=== PATIENT | female | born 1930 | race Caucasian/White ===

== ENCOUNTER 2017-12-21 13:15 | Inpatient (IN) ==
[2017-12-21] MEDS ORDERED: HYDROcodone/APAP 10/325MG TABLET PO ONE (13:41)
[2017-12-21] MEDS ORDERED: HYDROcodone/APAP 5/325MG TABLET PO ONE (13:55)
--- NOTE | 2017-12-21 14:00 | Emergency Department Note ---
Lower Extremity Injury HPI - General Chief Complaint: Extremity Injury, Lower Stated Complaint: Left knee and hip pain Time Seen by Provider: 12/21/17 13:23 Source: patient, family Mode of arrival: wheelchair Limitations: no limitations - History of Present Illness HPI Narrative: 87-year-old female presents with left hip knee and upper leg pain. She was seen here within the last 2 days for a fall that she had on Sunday. She had a CT scan of her pelvis which did not show any fracture. She also had hip x- ray but no knee x-ray. Since then she has not been able to stand or walk. She states the pain is 10 out of 10. She was sent home with hydrocodone which has not helped. She has also had incontinence of urine. Is new for her. She has not had any diarrhea. She is nauseated because of the pain. No vomiting. She has a history of back issues and that does not necessarily worse. She has weakness in the left leg and cannot get herself out of a chair with that leg. - Related Data Home Medications Medication Instructions Recorded Confirmed carbidopa 25 mg-levodopa 100 mg See Label Instructions PO .COMPLEX 09/29/1601/06 tablet pramipexole 0.5 mg tablet 0.5 mg PO BID tab 09/29/16 12/21/17 aspirin 81 mg tablet,delayed 81 mg PO QDAY 08/04/17 12/21/17 release Udo's 3.6.9 Blend 1,500 mg PO QDAY 08/30/17 12/21/17 acetaminophen 500 mg tablet 500 mg PO QDAY PRN tab 08/30/17 12/21/17 ketorolac 0.5 % eye drops 1 drp OPHTHALMIC Q8H 08/30/17 12/21/17 quetiapine 25 mg tablet See Label Instructions .ROUTE 10/23/17 12/21/17 .COMPLEX Previous Rx's Medication Instructions Recorded cyanocobalamin (vit B-12) 1,000 1,000 mcg PO .QOD #1 tab 12/28/16 mcg tablet hydrocodone 5 mg-acetaminophen 325 1 tab PO QDAY PRN #30 tab 11/08/17 mg tablet Allergies Allergy/AdvReac Type Severity Reaction Status Date / Time simvastatin [From Zocor] Allergy Intermediate Nightmares/ Verified 12/21/17 13: 15 hallucinati ons ciprofloxacin Allergy intolerance Verified 12/21/17 13:15 codeine AdvReac Intermediate Headache Verified 12/21/17 13:15 Beta-Blockers AdvReac Mild Other Verified 12/21/17 13:15 (Beta-Adrenergic Bloc diltiazem AdvReac Mild Other Verified 12/21/17 13:15 pregabalin [From Lyrica] AdvReac Mild Other Verified 12/21/17 13:15 Review of Systems All systems ED: reviewed and negative except as stated. Past Medical History - Past Medical History Medical history: Reports: arthritis, hyperlipidemia, hypertension, osteoporosis , TIA, other (allergic rhinitis, parkinson's disease) Psychiatric history: Reports: no psych history RESIDENT CARE AIDE history: Reports: non-contributory Surgical history ED: Reports: non-contributory Family history: Reports: non-contributory - Social History smoking status: Never smoker Alcohol use: Reports: None Drug use: Reports: none Physical Exam Limitations: no limitations General appearance: alert, in no apparent distress Head: atraumatic Eye: Present: normal appearance. Absent: conjunctival injection Neck: Present: normal inspection, full ROM Chest: Present: normal inspection, symmetric chest wall rise Respiratory: Present: normal lung sounds bilaterally Cardiovascular: Present: tachycardia, normal heart sounds Abdominal: Present: soft, normal bowel sounds. Absent: tenderness Extremities: Present: other (Lateral hip is tender on palpation. Medial knee is tender to palpation. No effusion of the knee. She has pain with flexion of the hip and abduction. She is able to flex the knee 90 without pain. Pain radiates from her hip to her knee. She is unable to lift both of her legs without significant pain. No foot drop.) Neurological: Present: alert, oriented X3 Psychiatric: Present: normal affect, normal mood Skin: Present: warm, dry, intact Course Course Narrative: She had a mild fever when she was triaged. I related it to her pain. She is now 100.7. I will start a workup She is also 88-89% on room air. We got a chest x-ray which shows a probable right lower lobe pneumonia. Fever better and vitals stable. Hoping to admit for pain control, pneumonia, and weakness. She requires 2 liters of oxygen at this time Vital Signs Temperature 100.0 F H 12/21/17 13:16 Pulse Rate 110 H 02/02/18 13:16 Respiratory Rate 18 12/21/17 13:16 Blood Pressure 176/96 12/21/17 13:16 Pulse Oximetry (%) 98 12/21/17 13:16 Temperature 99.5 F H 12/21/17 15:41 Pulse Rate 64 12/21/17 16:12 Respiratory Rate 20 12/21/17 16:12 Blood Pressure 141/77 12/21/17 16:24 Pulse Oximetry (%) 95 12/21/17 16:15 Extremity Injury, Lower - Lab Data Result diagrams: 12/21/17 14:50 12/21/17 14:50 Lab Results 12/21/17 12/21/17 12/21/17 Range/Units 14:50 14:50 14:50 WBC 9.4 (4.5-11.0) K/mcL RBC 4.58 (4.00-5.20) M/mcL Hgb 14.4 (12.0-15.0) g/dL Hct 42.4 (36.0-48.0) % MCV 92.7 (80.0-100.0) fL MCH 31.5 (26.0-34.0) pg MCHC 33.9 (31.0-36.0) g/dL RDW 13.2 (11.5-14.5) % Plt Count 242 (140-440) K/mcL MPV 8.1 (7.4-10.4) fL Total Counted 100 Seg Neutrophils % 81 H (38-78) % Band Neutrophils % Not Reportable Lymphocytes % 12 L (15-49) % Monocytes % (Manual) 7 (1-12) % Platelet Estimate Normal (NORMAL) RBC Morphology Normal (NORMAL) VBG Lactic Acid 0.9 (0.5-2.2) mmol/L Sodium 134 (133-145) mmol/L Potassium 3.9 (3.3-5.1) mmol/L Chloride 96 (96-108) mmol/L Carbon Dioxide 26 (22-30) mmol/L Anion Gap 12.0 (8-16) BUN 13 (8-23) mg/dl Creatinine 0.6 (0.6-1.1) mg/dl GFR Calculation 83 Glucose 117 H (70-105) mg/dL Calcium 9.1 (8.6-10.4) mg/dl Total Bilirubin 1.1 H (0.0-1.0) mg/dL AST 18 (0-37) U/l ALT 10 (0-40) U/l Alkaline Phosphatase 67 (39-117) U/L Total Protein 7.4 (5.9-8.4) gm/dL Albumin 4.5 (3.2-5.2) gm/dL Globulin 2.9 (2.2-3.7) gm/dL Albumin/Globulin Ratio 1.6 (1.0-2.3) Urine Color Urine Appearance Urine pH (5.0-9.0) Ur Specific [place] (1.000-1.035) Urine Protein (NEG) mg/dL Urine Glucose (UA) (NEG) mg/dL Urine Ketones (NEG) mg/dL Urine Occult Blood (<0.03) mg/dL Urine Nitrate (NEG) Urine Bilirubin (NEG) mg/dL Urine Urobilinogen (NEG) mg/dL Ur Leukocyte Esterase (NEG) /uL Urine RBC (0-1) /hpf Urine WBC (0-4) /hpf Ur Squamous Epith Cells (0-4) /hpf Urine Bacteria (0) /hpf Urine Mucus (0) /hpf Ur Culture Indicated? 12/21/17 Range/Units 15:49 WBC (4.5-11.0) K/mcL RBC (4.00-5.20) M/mcL Hgb (12.0-15.0) g/dL Hct (36.0-48.0) % MCV (80.0-100.0) fL MCH (26.0-34.0) pg MCHC (31.0-36.0) g/dL RDW (11.5-14.5) % Plt Count (140-440) K/mcL MPV (7.4-10.4) fL Total Counted Seg Neutrophils % (38-78) % Band Neutrophils % Lymphocytes % (15-49) % Monocytes % (Manual) (1-12) % Platelet Estimate (NORMAL) RBC Morphology (NORMAL) VBG Lactic Acid (0.5-2.2) mmol/L Sodium (133-145) mmol/L Potassium (3.3-5.1) mmol/L Chloride (96-108) mmol/L Carbon Dioxide (22-30) mmol/L Anion Gap (8-16) BUN (8-23) mg/dl Creatinine (0.6-1.1) mg/dl GFR Calculation Glucose (70-105) mg/dL Calcium (8.6-10.4) mg/dl Total Bilirubin (0.0-1.0) mg/dL AST (0-37) U/l ALT (0-40) U/l Alkaline Phosphatase (39-117) U/L Total Protein (5.9-8.4) gm/dL Albumin (3.2-5.2) gm/dL Globulin (2.2-3.7) gm/dL Albumin/Globulin Ratio (1.0-2.3) Urine Color Yellow Urine Appearance Clear Urine pH 6.0 (5.0-9.0) Ur Specific [place] 1.019 (1.000-1.035) Urine Protein Neg (NEG) mg/dL Urine Glucose (UA) Negative (NEG) mg/dL Urine Ketones 5/tr A (NEG) mg/dL Urine Occult Blood Neg (<0.03) mg/dL Urine Nitrate Neg (NEG) Urine Bilirubin Neg (NEG) mg/dL Urine Urobilinogen 2.0 A (NEG) mg/dL Ur Leukocyte Esterase Neg (NEG) /uL Urine RBC 4 H (0-1) /hpf Urine WBC 4 (0-4) /hpf Ur Squamous Epith Cells < 1 (0-4) /hpf Urine Bacteria 0 (0) /hpf Urine Mucus Few (0) /hpf Ur Culture Indicated? No - Radiology Data Radiology results reviewed: Yes I reviewed the patient's radiology results. No knee fracture Bands of atelectasis in both lung bases, right worse than left. Superimposed pneumonia in the right lower lobe cannot be excluded. Disposition Pt seen by SPORTS TEAM MANAGER/PA only: Yes Clinical Impression: Pneumonia, Weakness, Pain Disposition: Xfer As Outpt/Obs ([facility]) Condition: Fair Referrals: Max Joseph MD [Primary Care Provider] -
[2017-12-21] MEDS ORDERED: ONDANSETRON ODT 4 MG TABLET SL ONE (14:15)
--- NOTE | 2017-12-21 14:47 | XRay Report ---
HISTORY: Reason for Exam:knee pain after fall FINDINGS: No fracture or dislocation are present. Joint spaces are normal in width and alignment. There is moderate soft tissue swelling along the medial side of the joint. There may be a small suprapatellar joint effusion. There is no spur formation or bone erosion. Vascular clips are present in the distal thigh. IMPRESSION: Soft tissue injury and no fracture Interpreted and Authenticated by: Hussain Engel 12/21/17
[2017-12-21 15:15] LABS: Mean Cell Volume 92.7 fL (80.0-100.0); Mean Corpuscular HGB Conc 33.9 g/dL (31.0-36.0); Mean Corpuscular Hemoglobin 31.5 pg (26.0-34.0); Platelet Count 242 K/mcL (140-440); RBC 4.58 M/mcL (4.00-5.20); Red Cell Distribution Width 13.2 % (11.5-14.5)
[2017-12-21 15:34] LABS: ALT/SGPT 10 U/l (0-40); Albumin 4.5 gm/dL (3.2-5.2); Albumin/Globulin Ratio 1.6 (1.0-2.3); Alkaline Phosphatase 67 U/L (39-117); Blood Urea Nitrogen 13 mg/dl (8-23)
[2017-12-21 16:02] LABS: Lymphocytes % 12 % (15-49); Monocytes % (Manual) 7 % (1-12); Platelet Estimate NORMAL (NORMAL); RBC Morphology NORMAL (NORMAL); Segmented Neutrophils % 81 % (38-78)
--- NOTE | 2017-12-21 16:12 | XRay Report ---
HISTORY: Reason for Exam:90% on room air, recent cough, fever. FINDINGS: There is a thick wedge-shaped band of consolidated lung tissue located inferiorly and medially in the right lower thorax. There is a moderate size horizontally oriented band of discoid atelectasis above the left diaphragm. These are new finding since 12/02/17. The upper lung felix are clear. There is a prominent skin fold artifact in the left upper thorax which mimics a pneumothorax. The heart is mildly enlarged with left ventricular prominence. There is no congestive heart failure or pleural effusion. There are couple old healed right lateral rib fractures. Clips are seen in the right lateral chest wall in the upper outer quadrant of the breast. IMPRESSION: Bands of atelectasis in both lung bases, right worse than left. Superimposed pneumonia in the right lower lobe cannot be excluded. Interpreted and Authenticated by: Hussain Engel 12/21/17
[2017-12-21 16:18] LABS: Appearance,Urine CLEAR; Bacteria,Urine 0 /hpf (0); Bilirubin,Urine NEG (NEG); Color,Urine YELLOW; Glucose,Urine (UA) NEGATIVE (NEG); Leukocyte Esterase,Urine NEG /uL (NEG); Mucus,Urine FEW /hpf (0); Protein,Urine NEG (NEG); Specific Gravity,Urine 1.019 (1.000-1.035); Urine Blood NEG mg/dL (<0.03); Urine RBC 4 /hpf (0-1); Urine Squamous Epithelial Cell < 1 /hpf (0-4); Urine WBC 4 /hpf (0-4)
[2017-12-21] MEDS ORDERED: cefTRIAXone 1 GM VIAL IV ONE (16:24)
[2017-12-21] MEDS ORDERED: HYDROmorphone 2 MG/ML VIAL IV PRN (16:42)
[2017-12-21] MEDS ORDERED: MAGNESIUM SULFATE 2 GM/50 ML BAG IV ONE (16:49)
[2017-12-21] MEDS ORDERED: ALBUTEROL SULFATE 2.5 MG/3 ML NEBULIZER NEB PRN (19:03)
[2017-12-21] MEDS ORDERED: ONDANSETRON 4 MG/2 ML VIAL IV PRN (19:03)
[2017-12-21] MEDS ORDERED: cefTRIAXone 1 GM in DEXTROSE 5% IN WATER 50 ML IV SCH (19:15)
[2017-12-21] MEDS ORDERED: AZITHROMYCIN 250 MG in DEXTROSE 5% IN WATER 250 ML IV SCH (20:00)
[2017-12-21] MEDS ORDERED: IOPAMIDOL 100 ML BOTTLE IV ONE (20:41)
--- NOTE | 2017-12-21 20:51 | Internal Med History&Physical ---
Medical - H&P: HPI Patient information: Note initiated : 12/21/17 at 8:51 pm Service Date, if different from initiated Date: [] Patient: Christina Camargo 87 y/o F admitted on 12/21/17 for Left knee and hip pain. Chief Complaint: left hip and knee pain History of present illness: The patient is a 87-year-old female with history of Parkinson's disease, hypertension, hyperlipidemia who presents the ED with persistent pain after ground-level fall. History is obtained in speaking to the patient, her as well as reviewing old records which are obtained and summarized below. The patient had a fall on Sunday evening. She is generally unsteady on her feet secondary to Parkinson's disease and in the process of going to bed, became unsteady on her feet and had a ground-level fall landing on the left side of her body as well as striking her head. She was fairly miserable at night was seen in the emergency department yesterday morning. Imaging did not reveal any evidence of fracture. There was thought of admitting her, but apparently the family wanted to try getting along at home. She spent a fairly miserable day yesterday after returning home, she was painful and cannot bear weight on the left leg. She had Montgomery on hand, and it did not seem to provide much relief. Because of persistent pain and a repeat present to the emergency department today. After the patient received 25 mg Montgomery's, her pain did improve. However Point it became apparent she was febrile, had a fever of 100.7. She is also hypoxic requiring 2-3 L nasal cannula to maintain her sats in the mid 90%. Further evaluation included radiograph which showed atelectasis, though infiltrate cannot be excluded at the right lower lobe. She had a normal white count, though given her hypoxia and low-grade fever, she received antibiotics and was contacted for admission. Patient denies any chest pain. She is actually fairly comfortable when I see her after having received Montgomery and subsequently IV Dilaudid in the emergency department. She had had significant pain in her right lateral hip region as well as the knee throughout the day today. She is unable to get up, pivot transfer. She became incontinent of urine. Apparently she does have some problem with incontinence and wear pads. Upon query, she tells me that she knew she had to urinate, filled her bladder is full, but couldn't get up or make it to the commode. She denies any chest pain, no cough, no sputum production. She feels a little short of breath. No headache. She had no loss of consciousness when she fell. No vision changes. No sore throat, no difficulty swallowing, no choking, no aspiration. No nausea or vomiting, no abdominal pain, no diarrhea. When she is incontinent, there is no dysuria. 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-[place] Skin tear of elbow without complication (Acute) Traumatic hematoma of left forearm (Acute) History of ECG (Chronic 10/28/15) Encounter for Health Maintenance Examination in Adult (Chronic) Vitamin D deficiency (Chronic) Vitamin B 12 deficiency (Chronic) Urinary tract infection (Acute) Transient ischemic attack (Chronic 07/04/13) Thoracic spine pain (Acute) Plantar wart (Acute) Personal history of breast cancer (Chronic) 1999 Peripheral neuropathy (Chronic) Parkinson's disease (Chronic) Palpitations (Acute) Pain in joint, forearm (Acute) Abnormal breast exam (Acute) Lobular hyperplasia Osteoporosis (Chronic) Osteoarthritis (Chronic) (04/06/15-[place]) Muscle weakness (generalized) (Acute) (04/06/15-[place]) 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[place]) Chest congestion (Acute) Insomnia (Chronic) Hypertension, essential (Acute) Hyperlipemia (Chronic) Homocystinemia (Acute) Fracture of one rib, closed (Acute) 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) Cough (Acute) Constipation (Acute) Chest wall pain (Acute) Basal cell carcinoma (Acute) 02/2013 Right side of face close to eye Allergic rhinitis (Acute) After cataract of both eyes not obscuring vision (Chronic) 12/31/2015-[place] Surgical history: H/O varicose vein stripping (Acute) 1959; 1981 History of oophorectomy (Acute) 1965 right, secondary to ruptured cyst History of lymph node biopsy (Acute) 1999 History of lumpectomy of right breast (Acute) 1999 History of hysterectomy (Acute) 1974 left ovary intact History of left breast biopsy (Acute 10/09/14) History of basal cell carcinoma excision (Acute) 02/2016 (sic) right side of face Pertinent family history: Mother Alcohol abuse Cardiac disease Essential hypertension Malignant neoplasm Osteoporosis Aunt Anemia Father Cardiac disease Social history: Lives with her . She never smoked. She does not drink alcohol. Medical - H&P: Meds Home Medications Medication Instructions Recorded Confirmed Type carbidopa 25 mg-levodopa 100 mg See Label Instructions PO .COMPLEX 09/29/1601/06 History tablet pramipexole 0.5 mg tablet 0.5 mg PO BID tab 09/29/16 12/21/17 History cyanocobalamin (vit B-12) 1,000 1,000 mcg PO .QOD #1 tab 12/28/16 12/21/17 Rx mcg tablet aspirin 81 mg tablet,delayed 81 mg PO QDAY 08/04/17 12/21/17 History release Udo's 3.6.9 Blend 1,500 mg PO QDAY 08/30/17 12/21/17 History acetaminophen 500 mg tablet 500 mg PO QDAY PRN tab 08/30/17 12/21/17 History ketorolac 0.5 % eye drops 1 drp OPHTHALMIC Q8H 08/30/17 12/21/17 History quetiapine 25 mg tablet See Label Instructions .ROUTE 10/23/17 12/21/17 History .COMPLEX hydrocodone 5 mg-acetaminophen 325 1 tab PO QDAY PRN #30 tab 11/08/17 12/21/17 Rx mg tablet Allergies Allergy/AdvReac Type Severity Reaction Status Date / Time simvastatin [From Zocor] AdvReac Intermediate Nightmares/ Verified 12/21/17 19: 45 hallucinati ons ciprofloxacin AdvReac Mild Intolerance Verified 12/21/17 19:45 codeine AdvReac Mild Headache Verified 12/21/17 19:45 pregabalin [From Lyrica] AdvReac Mild Intolerance Verified 12/21/17 19:45 Medical - H&P: Exam - Constitutional Vitals: Temp Pulse Resp BP Pulse Ox 98 F 64 12 131/74 93 12/21/17 17:58 12/21/17 17:58 12/21/17 17:58 12/21/17 17:58 12/21/17 17:58 Exam: General: Drowsy, comfortable appearing HEENT: Normocephalic. Pupils are 2 mm and equal equally. Sclera are anicteric. No conjunctival injection. Oropharynx is with moist mucous membranes, no lip or gum lesions. Tongue is midline. Neck: Supple, no meningismus. No thyromegaly. Chest: Clear to auscultation bilaterally with no rales or wheezes. No accessory muscle use. Cardiovascular: Regular rate and rhythm with 1/6 systolic murmur, no gallop or rub. Carotid pulses are 2+ without bruit. There is no lower extremity edema. JVP is normal. Abdomen: Soft, nontender without guarding or rebound. Active bowel sounds. No hepatosplenomegaly. Skin: Warm, dry. No rash. Skin turgor is decreased Musculoskeletal: Tenderness palpation over the greater trochanter. No overlying erythema. There is no pain with passive range of motion of the left hip nor the right hip. No pain with passive range of motion left knee. No deformity of the knee joint. Digits without cyanosis or clubbing. Neuro: Drowsy, oriented to person and situation. Cranial nerves II through XII grossly intact. Sensation intact to light touch. DTR 2+ in the upper and lower extremity. Resting tremor of the left forearm and hand. Moderate cogwheel rigidity. Medical - H&P: Reslt - Labs CBC & Chem 7: 12/21/17 14:50 12/21/17 14:50 Labs: Short CBC 12/21/17 Range/Units 14:50 WBC 9.4 (4.5-11.0) K/mcL Hgb 14.4 (12.0-15.0) g/dL Hct 42.4 (36.0-48.0) % Plt Count 242 (140-440) K/mcL BMP 12/21/17 14:50 Sodium 134 Potassium 3.9 Chloride 96 Carbon Dioxide 26 BUN 13 Creatinine 0.6 Glucose 117 H Calcium 9.1 Liver Function 12/21/17 Range/Units 14:50 Total Bilirubin 1.1 H (0.0-1.0) mg/dL AST 18 (0-37) U/l ALT 10 (0-40) U/l Alkaline Phosphatase 67 (39-117) U/L Albumin 4.5 (3.2-5.2) gm/dL Urine 12/21/17 Range/Units 15:49 Urine Color Yellow Urine Appearance Clear Urine pH 6.0 (5.0-9.0) Ur Specific [place] 1.019 (1.000-1.035) Urine Protein Neg (NEG) mg/dL Urine Glucose (UA) Negative (NEG) mg/dL - Impressions Left knee film 12/21 IMPRESSION: Soft tissue injury and no fracture Pelvis CT 12/20 Impression: -No fracture -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 Superimposed pneumonia in the right lower lobe cannot be excluded. Medical - H&P: A/P (1) Acute respiratory failure with hypoxemia Current visit: Yes Status: Acute (2) Contusion of left hip Current visit: No Status: Acute (3) Pain Current visit: Yes Status: Acute - Narrative A/P Narrative: 87-year-old female who presents with ongoing pain after ground-level fall yesterday. Found to have low-grade temperature and hypoxic respiratory failure. Acute hypoxic respiratory failure. Chest radiograph cannot rule out pneumonia, though she does not have cough or sputum production, and does not have leukocytosis. Given her use of opioids, she could have atelectasis and pneumonia. Likewise this could be secondary to hypoventilation. She is received antibiotics in the ED. Patient does complain of some tenderness in the calf bilaterally. She has no history of clots. Plan: Inpatient admission for respiratory failure, possible pneumonia Check CT angio to rule out pulmonary embolus him, evaluate for other parenchymal issues that could be leading to hypoxemia We'll consider antibiotic therapy pending above Pulmonary toilet Supplemental oxygen to maintain saturations greater than 92% Ground-level fall with left lower extremity pain. Imaging was reviewed and reviewed with radiology in the emergency department. No fracture is noted. Films of the left knee show soft tissue swelling but no fracture. Suspect this is contusion/soft tissue injury and not occult fracture. Plan: Analgesics, PT and OT evaluations, consider imaging again if pain does not lessen. Parkinson's disease with decreased mobility. Apparently led to an original fall. Plan: Continue Sinemet. Therapy evaluation and treatment as above. Hypertension. Plan: Continue home regimen. Prophylaxis: Heparin
[2017-12-21] MEDS ORDERED: PRAMIPEXOLE 0.25 MG TABLET PO SCH (21:00)
[2017-12-21] MEDS: HYDROcodone/APAP 5/325MG TABLET PO PRN (21:57)
[2017-12-21] MEDS: QUEtiapine 25 MG TABLET PO SCH (22:06)
[2017-12-21] MEDS: 0.9 % SODIUM CHLORIDE 10 ML SYRINGE IV SCH (22:36)
[2017-12-22] MEDS: HYDROcodone/APAP 5/325MG TABLET PO PRN ×5 (02:44→22:46)
[2017-12-22] MEDS: 0.9 % SODIUM CHLORIDE 10 ML SYRINGE IV SCH ×3 (05:41→20:17)
[2017-12-22 05:43] LABS: Mean Cell Volume 93.5 fL (80.0-100.0); Mean Corpuscular HGB Conc 33.7 g/dL (31.0-36.0); Mean Corpuscular Hemoglobin 31.5 pg (26.0-34.0); Platelet Count 231 K/mcL (140-440); Red Cell Distribution Width 12.9 % (11.5-14.5)
[2017-12-22 06:04] LABS: Blood Urea Nitrogen 14 mg/dl (8-23)
[2017-12-22 06:38] LABS: Lymphocytes % 17 % (15-49); Monocytes % (Manual) 6 % (1-12); Platelet Estimate NORMAL (NORMAL); RBC Morphology NORMAL (NORMAL); Segmented Neutrophils % 77 % (38-78)
[2017-12-22] MEDS ORDERED: CARBIDOPA/LEVODOPA 25/100 TABLET PO SCH (08:00)
[2017-12-22] MEDS ORDERED: cefTRIAXone 1 GM VIAL IV SCH (09:00)
--- NOTE | 2017-12-22 09:07 | Cat Scan Report ---
CLINICAL INFORMATION: Reason for Exam:Hypoxia, eval for PE COMPARISON: None TECHNIQUE: Axial images obtained through the chest. intravenous contrast administration was administered, and scanning was performed during pulmonary arterial phase. Sagittally and coronally reformatted images were obtained. MIP reformatted images. FINDINGS: The pulmonary arteries are normal with no intraluminal filling defects. The aorta is normal in caliber. There are scattered plaques along the wall. The heart is mildly enlarged. There are few calcified plaques in the proximal left anterior descending coronary artery. No pericardial or pleural effusion are present. There are multiple bands of atelectasis in both lower lobes with milder involvement in the lingula and right middle lobe. No pulmonary mass is present. The esophagus is mildly distended with ingested material. There are no enlarged lymph nodes in the mediastinum or james. There are several low-attenuation structure scattered throughout the liver. The largest is in the lateral segment left lobe. It measures 2 cm and has water density. These are most likely cysts. IMPRESSION: No evidence of pulmonary emboli Moderate atelectasis, predominantly involving the lower lobes Mild atherosclerotic coronary artery disease with mild cardiomegaly Esophageal dilatation Dr. Lane was called with the results Interpreted and Authenticated by: Hussain Engel 12/22/17
[2017-12-22] MEDS: CELECOXIB 100 MG CAPSULE PO SCH ×2 (09:38→16:15)
[2017-12-22] MEDS: ASPIRIN 81 MG TAB.CHEW PO SCH (09:40)
[2017-12-22] MEDS: ENOXAPARIN 30 MG/0.3 ML SYRINGE SQ SCH (09:41)
[2017-12-22] MEDS ORDERED: KETOROLAC TROMETHAMINE 3 ML DROPS OP PRN (11:53)
[2017-12-22] MEDS ORDERED: PRAMIPEXOLE 0.25 MG TABLET PO SCH (12:00)
[2017-12-22] MEDS: PRAMIPEXOLE 0.25 MG TABLET PO SCH (12:27)
[2017-12-22] MEDS: CARBIDOPA/LEVODOPA 25/100 TABLET PO SCH (12:27)
[2017-12-22] MEDS ORDERED: CELECOXIB 200 MG CAPSULE PO ONE (14:11)
--- NOTE | 2017-12-22 17:07 | Internal Med Progress Note ---
Medical - PN: Subj Patient information: Note initiated : 12/22/17 at 5:05 pm Service Date, if different from initiated Date: [] Patient: Christina Camargo 87 y/o F admitted on 12/21/17 for Left knee and hip pain. Chief Complaint: f/u LLE pain, hypoxia Interval history: 12/21 The patient had a fall on Sunday evening. She is generally unsteady on her feet secondary to Parkinson's disease and in the process of going to bed, became unsteady on her feet and had a ground-level fall landing on the left side of her body as well as striking her head. She was fairly miserable at night was seen in the emergency department yesterday morning. Imaging did not reveal any evidence of fracture. There was thought of admitting her, but apparently the family wanted to try getting along at home. She spent a fairly miserable day yesterday after returning home, she was painful and cannot bear weight on the left leg. She had [place] on hand, and it did not seem to provide much relief. Because of persistent pain and a repeat present to the emergency department today. After the patient received 25 mg [place]'s, her pain did improve. However Point it became apparent she was febrile, had a fever of 100.7. She is also hypoxic requiring 2-3 L nasal cannula to maintain her sats in the mid 90%. Further evaluation included radiograph which showed atelectasis, though infiltrate cannot be excluded at the right lower lobe. She had a normal white count, though given her hypoxia and low-grade fever, she received antibiotics and was contacted for admission. 2/ Still with left lateral hip and leg pain, though it seems to be slowly improving. CT angios shows significant atelectasis which had progressed from chest film previous day. No evidence pulmonary embolism. No evidence of infiltrate or inflammatory changes. - Constitutional Vitals: Vital Signs Temp Pulse Resp BP Pulse Ox 98.5 F 70 16 140/81 92 12/22/17 15:23 12/22/17 04:00 12/22/17 15:23 12/22/17 15:23 12/22/17 15:23 Period Temp Pulse Resp BP Sys/Carlin Pulse Ox Last 24 Hr 97.8 F-98.9 F 64-81 12-18 111-180/70-81 89-97 Intake and Output 02/03/18 02/03/18 02/03/18 05:59 13:59 21:59 Intake Total 430 / 430 120 / 120 240 / 240 Output Total 276 / 276 1 / 1 500 / 500 Balance 154 / 154 119 / 119 -260 / -260 Weight 120 lb 4.8 oz Patient Weight 12/23/17 05:59 Weight 120 lb 4.8 oz Intake & Output: Intake & Output 12/22/17 12/22/17 12/22/17 05:59 13:59 21:59 Intake Total 430 / 430 120 / 120 240 / 240 Output Total 276 / 276 1 / 1 500 / 500 Balance 154 / 154 119 / 119 -260 / -260 Weight 120 lb 4.8 oz Intake: IV 250 / 250 Zithromax 250 mg In Dextrose 5% 250 / 250 in Water 250 ml @ 250 mls/hr IV Q24H [facility] Rx#:[id number] Oral 180 / 180 120 / 120 240 / 240 Output: Void Amount 275 / 275 500 / 500 # of times incontinent of urine Other: Meal Snack Percent of Meal Consumed 100% # Voids 1 2 Exam: General: A bit sedated after [place]. Chest: Few basal rales, clear after deep respirations Cardiovascular: Regular, no edema Abdomen: Soft nontender Musculoskeletal: Tenderness over the greater trochanter on the left, as well as mid lateral thigh. Neurologic: Alert, oriented, bit drowsy. Tremor and cogwheel rigidity persists. Medical - PN: Obj Da - Labs CBC & Chem 7: 12/22/17 04:11 12/22/17 04:11 Labs: Abnormal Lab Results 12/22/17 12/21/17 12/21/17 04:11 15:49 14:50 Seg Neutrophils % Lymphocytes % Chloride 95 L Glucose 117 H Total Bilirubin 1.1 H Urine Ketones 5/tr A Urine Urobilinogen 2.0 A Urine RBC 4 H 12/21/17 14:50 Seg Neutrophils % 81 H Lymphocytes % 12 L Chloride Glucose Total Bilirubin Urine Ketones Urine Urobilinogen Urine RBC Meds: Medications Acetaminophen (Tylenol) 650 mg PO Q6HP PRN PRN Reason: PAIN/FEVER > 101 Hydrocodone Bitart/Acetaminophen ([place] 5/325mg) 1 tab PO Q4HP PRN PRN Reason: PAIN LEVEL 3-6 Last Admin: 12/22/17 13:12 Dose: 1 tab Albuterol Sulfate (Ventolin) 2.5 mg NEB Q2HP PRN PRN Reason: Shortness Of Breath Aspirin (Aspirin) 81 mg PO DAILY [facility] Last Admin: 12/22/17 09:40 Dose: 81 mg Carbidopa/Levodopa (Sinemet 25/100) 1.5 tab PO BID@0600,1200 [facility] Last Admin: 12/22/17 12:27 Dose: 1.5 tab Celecoxib (Celebrex) 200 mg PO DAILY [facility] Enoxaparin Sodium (Lovenox) 30 mg SQ DAILY [facility] Last Admin: 12/22/17 09:41 Dose: 30 mg Hydromorphone HCl (Dilaudid) 0.5 mg IV Q15MIN PRN PRN Reason: PAIN LEVEL > 6 Last Admin: 12/21/17 16:56 Dose: 0.5 mg Ketorolac Tromethamine (Ketorolac Tromethamine) 0 ml OP Q8HP PRN PRN Reason: Pain Ondansetron HCl (Zofran) 4 mg IV Q6HP PRN PRN Reason: Nausea And Vomiting Pramipexole Dihydrochloride (Mirapex) 0.25 mg PO BID@0600,1200 [facility] Last Admin: 12/22/17 12:27 Dose: 0.25 mg Quetiapine Fumarate (Seroquel) 12.5 mg PO HS [facility] Last Admin: 12/21/17 22:06 Dose: Not Given Sodium Chloride (Saline Flush) 10 ml IV Q8 [facility] Last Admin: 12/22/17 14:47 Dose: 10 ml - Imaging and cardiology CT scan - chest Status: image reviewed by me Additional comments: IMPRESSION: -No evidence of pulmonary emboli -Moderate atelectasis, predominantly involving the lower lobes -Mild atherosclerotic coronary artery disease with mild cardiomegaly -Esophageal dilatation Discussed with radiology. Medical - PN: A/P - Time Spent With Patient Total time spent is greater than 50% in coordination of care (as documented) at patient's floor/unit and/or counseling patient: 25 - 35 minutes (1) Acute respiratory failure with hypoxemia Status: Acute Current Visit: Yes (2) Contusion of left hip Status: Acute Current Visit: No (3) Pain Status: Acute Current Visit: Yes - Narrative A/P Narrative: 87-year-old female who presents with ongoing pain after ground-level fall yesterday. Found to have low-grade temperature and hypoxic respiratory failure. Acute hypoxic respiratory failure. Chest CT rules out pneumonia, rules out pulmonary embolism. Does have significant atelectasis. Suspect this is the cause of hypoxia, atelectasis secondary to hypoventilation from pain medications and underlying Parkinson's disease. Plan: Incentive spirometry, d/c antibiotics. Ground-level fall with left lower extremity pain. No fracture noted. Slight improvement. Suspect soft tissue injury. Plan: Discussed using Celebrex, we'll start that, continue with narcotics cautiously, continue with PT and OT. Parkinson's disease with decreased mobility. Apparently led to an original fall. Plan: Continue Sinemet. Therapy evaluation and treatment as above. Hypertension. Plan: Continue home regimen. Prophylaxis: Heparin Medical - PN: Qual - VTE Deep Vein Thrombosis/Pulmonary Embolism Present on Admission: No
[2017-12-22] MEDS: QUEtiapine 25 MG TABLET PO SCH (20:17)
[2017-12-23] MEDS: HYDROcodone/APAP 5/325MG TABLET PO PRN ×3 (05:27→16:26)
[2017-12-23] MEDS: CARBIDOPA/LEVODOPA 25/100 TABLET PO SCH ×2 (05:38→11:46)
[2017-12-23] MEDS: PRAMIPEXOLE 0.25 MG TABLET PO SCH ×2 (05:39→11:46)
[2017-12-23] MEDS: 0.9 % SODIUM CHLORIDE 10 ML SYRINGE IV SCH ×3 (05:39→20:51)
[2017-12-23] MEDS: ENOXAPARIN 30 MG/0.3 ML SYRINGE SQ SCH (09:09)
[2017-12-23] MEDS: ASPIRIN 81 MG TAB.CHEW PO SCH (09:09)
[2017-12-23] MEDS: CELECOXIB 200 MG CAPSULE PO SCH (09:09)
--- NOTE | 2017-12-23 17:01 | Internal Med Progress Note ---
Medical - PN: Subj Patient information: Note initiated : 12/23/17 at 4:59 pm Service Date, if different from initiated Date: [] Patient: Christina Camargo 87 y/o F admitted on 12/21/17 for Left knee and hip pain. Chief Complaint: follow-up hip contusion Interval history: 12/21 The patient had a fall on Sunday evening. She is generally unsteady on her feet secondary to Parkinson's disease and in the process of going to bed, became unsteady on her feet and had a ground-level fall landing on the left side of her body as well as striking her head. She was fairly miserable at night was seen in the emergency department yesterday morning. Imaging did not reveal any evidence of fracture. There was thought of admitting her, but apparently the family wanted to try getting along at home. She spent a fairly miserable day yesterday after returning home, she was painful and cannot bear weight on the left leg. She had [place] on hand, and it did not seem to provide much relief. Because of persistent pain and a repeat present to the emergency department today. After the patient received 25 mg [place]'s, her pain did improve. However [place] it became apparent she was febrile, had a fever of 100.7. She is also hypoxic requiring 2-3 L nasal cannula to maintain her sats in the mid 90%. Further evaluation included radiograph which showed atelectasis, though infiltrate cannot be excluded at the right lower lobe. She had a normal white count, though given her hypoxia and low-grade fever, she received antibiotics and was contacted for admission. 2/3 Still with left lateral hip and leg pain, though it seems to be slowly improving. CT angios shows significant atelectasis which had progressed from chest film previous day. No evidence pulmonary embolism. No evidence of infiltrate or inflammatory changes. 2/4 More mobile today, was able to get up and ambulate in the room to some extent. Still needing assistance to standing and with ambulation. Celebrex seems to be helping her hip pain. Not yet independent enough to return home. No cough or sputum production. Using incentive spirometer. - Constitutional Vitals: Vital Signs Temp Pulse Resp BP Pulse Ox 98.2 F 69 18 174/99 97 12/23/17 15:12 12/23/17 04:00 12/23/17 15:12 12/23/17 15:12 12/23/17 15:12 Period Temp Pulse Resp BP Sys/Carlin Pulse Ox Last 24 Hr 97.8 F-98.6 F 64-71 12-18 149-174/77-99 91-97 Intake and Output 12/23/17 12/23/17 12/23/17 05:59 13:59 21:59 Intake Total 400 / 400 120 / 120 600 / 600 Output Total 251 / 251 1400 / 1400 500 / 500 Balance 149 / 149 -1280 / -1280 100 / 100 Intake & Output: Intake & Output 12/23/17 12/23/17 12/23/17 05:59 13:59 21:59 Intake Total 400 / 400 120 / 120 600 / 600 Output Total 251 / 251 1400 / 1400 500 / 500 Balance 149 / 149 -1280 / -1280 100 / 100 Intake: Oral 400 / 400 120 / 120 600 / 600 Output: Void Amount 250 / 250 1400 / 1400 500 / 500 # of times incontinent of urine Other: Meal Breakfast Percent of Meal Consumed 75% # Voids 1 Exam: General: Laying in bed, looks comfortable, awake and alert Chest: Clear, no rales, nonlabored Cardiovascular: Regular, no edema Abdomen: Soft Musculoskeletal: Mild tenderness to palpation over the greater trochanter of the left hip. No hip pain with passive range of motion. Neuro: Awake, alert, conversant. Resting tremor and cogwheel rigidity unchanged. Medical - PN: Obj Da - Labs CBC & Chem 7: 12/22/17 04:11 12/22/17 04:11 Labs: Abnormal Lab Results 12/22/17 12/21/17 12/21/17 04:11 15:49 14:50 Seg Neutrophils % Lymphocytes % Chloride 95 L Glucose 117 H Total Bilirubin 1.1 H Urine Ketones 5/tr A Urine Urobilinogen 2.0 A Urine RBC 4 H 12/21/17 14:50 Seg Neutrophils % 81 H Lymphocytes % 12 L Chloride Glucose Total Bilirubin Urine Ketones Urine Urobilinogen Urine RBC Meds: Medications Acetaminophen (Tylenol) 650 mg PO Q6HP PRN PRN Reason: PAIN/FEVER > 101 Hydrocodone Bitart/Acetaminophen ([place] 5/325mg) 1 tab PO Q4HP PRN PRN Reason: PAIN LEVEL 3-6 Last Admin: 12/23/17 16:26 Dose: 1 tab Albuterol Sulfate (Ventolin) 2.5 mg NEB Q2HP PRN PRN Reason: Shortness Of Breath Aspirin (Aspirin) 81 mg PO DAILY [facility] Last Admin: 12/23/17 09:09 Dose: 81 mg Carbidopa/Levodopa (Sinemet 25/100) 1.5 tab PO BID@0600,1200 [facility] Last Admin: 12/23/17 11:46 Dose: 1.5 tab Celecoxib (Celebrex) 200 mg PO DAILY [facility] Last Admin: 12/23/17 09:09 Dose: 200 mg Enoxaparin Sodium (Lovenox) 30 mg SQ DAILY [facility] Last Admin: 12/23/17 09:09 Dose: 30 mg Ketorolac Tromethamine (Ketorolac Tromethamine) 0 ml OP Q8HP PRN PRN Reason: Pain Ondansetron HCl (Zofran) 4 mg IV Q6HP PRN PRN Reason: Nausea And Vomiting Pramipexole Dihydrochloride (Mirapex) 0.25 mg PO BID@0600,1200 [facility] Last Admin: 12/23/17 11:46 Dose: 0.25 mg Quetiapine Fumarate (Seroquel) 12.5 mg PO HS [facility] Last Admin: 12/22/17 20:17 Dose: Not Given Sodium Chloride (Saline Flush) 10 ml IV Q8 [facility] Last Admin: 12/23/17 16:27 Dose: 10 ml Medical - PN: A/P - Time Spent With Patient Total time spent is greater than 50% in coordination of care (as documented) at patient's floor/unit and/or counseling patient: 25 - 35 minutes (1) Acute respiratory failure with hypoxemia Status: Resolved Current Visit: Yes (2) Contusion of left hip Status: Acute Current Visit: No (3) Pain Status: Acute Current Visit: Yes - Narrative A/P Narrative: 87-year-old female who presents with ongoing pain after ground-level fall yesterday. Found to have low-grade temperature and hypoxic respiratory failure. Acute hypoxic respiratory failure. Result. Suspect secondary to hypoventilation and atelectasis. Chest CT w/o PNA or PE. Plan: Incentive spirometry. Ground-level fall with left lower extremity pain. No fracture noted. Further improvement today, though still needing significantly more assistance than at baseline to attend to ADLs. Suspect soft tissue injury. Discussed possibility of skilled rehabilitation. They're going to think about it and discuss with her daughter. Plan: Continue Celebrex, cautious opioids, continue with PT and OT. Parkinson's disease with decreased mobility. Apparently led to an original fall. Plan: Continue Sinemet. Therapy evaluation and treatment as above. Hypertension. Plan: Continue home regimen. Prophylaxis: Heparin Medical - PN: Qual - VTE Deep Vein Thrombosis/Pulmonary Embolism Present on Admission: No
[2017-12-23] MEDS ORDERED: BISACODYL 10 MG SUPP.RECT PR PRN (18:09)
[2017-12-23] MEDS ORDERED: MAGNESIUM HYDROXIDE 30 ML ORAL.SUSP PO PRN (18:09)
[2017-12-23] MEDS ORDERED: FLEETS ADULT ENEMA PR PRN (18:09)
[2017-12-23] MEDS: ACETAMINOPHEN 325 MG TABLET PO PRN (18:56)
[2017-12-23] MEDS: DOCUSATE SODIUM 100 MG CAPSULE PO SCH (20:48)
[2017-12-23] MEDS: QUEtiapine 25 MG TABLET PO SCH (20:53)
[2017-12-24] MEDS: HYDROcodone/APAP 5/325MG TABLET PO PRN ×5 (00:17→23:45)
[2017-12-24] MEDS: ACETAMINOPHEN 325 MG TABLET PO PRN (03:31)
[2017-12-24] MEDS: CARBIDOPA/LEVODOPA 25/100 TABLET PO SCH ×2 (05:58→12:36)
[2017-12-24] MEDS: PRAMIPEXOLE 0.25 MG TABLET PO SCH ×2 (05:59→12:37)
[2017-12-24] MEDS: 0.9 % SODIUM CHLORIDE 10 ML SYRINGE IV SCH ×3 (05:59→20:06)
[2017-12-24] MEDS: ENOXAPARIN 30 MG/0.3 ML SYRINGE SQ SCH (08:40)
[2017-12-24] MEDS: CELECOXIB 200 MG CAPSULE PO SCH (08:41)
[2017-12-24] MEDS: DOCUSATE SODIUM 100 MG CAPSULE PO SCH ×2 (08:41→20:05)
[2017-12-24] MEDS: ASPIRIN 81 MG TAB.CHEW PO SCH (08:41)
[2017-12-24] MEDS ORDERED: amLODIPine 5 MG TABLET PO SCH (09:00)
--- NOTE | 2017-12-24 12:27 | Internal Med Progress Note ---
Medical - PN: Subj Patient information: Note initiated : 12/24/17 at 12:23 pm Service Date, if different from initiated Date: [] Patient: Christina Camargo 87 y/o F admitted on 12/21/17 for Left Knee and Hip Pain/Hypoxic Respiratory Failure. Chief Complaint: f/u leg pain Interval history: 12/21 The patient had a fall on Sunday evening. She is generally unsteady on her feet secondary to Parkinson's disease and in the process of going to bed, became unsteady on her feet and had a ground-level fall landing on the left side of her body as well as striking her head. She was fairly miserable at night was seen in the emergency department yesterday morning. Imaging did not reveal any evidence of fracture. There was thought of admitting her, but apparently the family wanted to try getting along at home. She spent a fairly miserable day yesterday after returning home, she was painful and cannot bear weight on the left leg. She had [place] on hand, and it did not seem to provide much relief. Because of persistent pain and a repeat present to the emergency department today. After the patient received 25 mg [place]'s, her pain did improve. However [place] it became apparent she was febrile, had a fever of 100.7. She is also hypoxic requiring 2-3 L nasal cannula to maintain her sats in the mid 90%. Further evaluation included radiograph which showed atelectasis, though infiltrate cannot be excluded at the right lower lobe. She had a normal white count, though given her hypoxia and low-grade fever, she received antibiotics and was contacted for admission. 2/3 Still with left lateral hip and leg pain, though it seems to be slowly improving. CT angios shows significant atelectasis which had progressed from chest film previous day. No evidence pulmonary embolism. No evidence of infiltrate or inflammatory changes. 2/4 More mobile today, was able to get up and ambulate in the room to some extent. Still needing assistance to standing and with ambulation. Celebrex seems to be helping her hip pain. Not yet independent enough to return home. No cough or sputum production. Using incentive spirometer. 2/5 A bit more painful today. Using [place] as needed. Patient and her family have agreed on skilled facility. Waiting approval at this point. - Constitutional Vitals: Vital Signs Temp Pulse Resp BP Pulse Ox 97.9 F 61 16 168/93 97 12/24/17 10:51 12/24/17 04:00 12/24/17 10:51 12/24/17 10:51 12/24/17 10:51 Period Temp Pulse Resp BP Sys/Carlin Pulse Ox Last 24 Hr 97.8 F-98.7 F 61-71 16-18 168-186/82-99 93-98 Intake and Output 12/23/17 12/24/17 12/24/17 21:59 05:59 13:59 Intake Total 780 / 780 200 / 200 Output Total 1000 / 1000 901 / 901 376 / 376 Balance -220 / -220 -701 / -701 -376 / -376 Weight 121 lb Intake & Output: Intake & Output 12/23/17 12/24/17 12/24/17 21:59 05:59 13:59 Intake Total 780 / 780 200 / 200 Output Total 1000 / 1000 901 / 901 376 / 376 Balance -220 / -220 -701 / -701 -376 / -376 Weight 121 lb Intake: Oral 780 / 780 200 / 200 Output: Void Amount 1000 / 1000 900 / 900 375 / 375 # of times incontinent of urine Other: Meal 1/2 piece of bread, 1/2 cookie Percent of Meal Consumed 50% Feeding Ability Assist with Tray Set Up # Voids 1 1 # Bowel Movements 1 Exam: General: Lying in bed, appears comfortable Chest: Clear, no rales Alli [place]: Regular, no edema Abdomen: Soft, nontender Neuro: Alert, oriented 3, mild resting tremor, cogwheel rigidity unchanged. Medical - PN: Obj Da - Labs CBC & Chem 7: 12/22/17 04:11 12/22/17 04:11 Labs: Abnormal Lab Results 12/22/17 12/21/17 12/21/17 04:11 15:49 14:50 Seg Neutrophils % Lymphocytes % Chloride 95 L Glucose 117 H Total Bilirubin 1.1 H Urine Ketones 5/tr A Urine Urobilinogen 2.0 A Urine RBC 4 H 12/21/17 14:50 Seg Neutrophils % 81 H Lymphocytes % 12 L Chloride Glucose Total Bilirubin Urine Ketones Urine Urobilinogen Urine RBC Meds: Medications Acetaminophen (Tylenol) 650 mg PO Q6HP PRN PRN Reason: PAIN/FEVER > 101 Last Admin: 12/24/17 03:31 Dose: 650 mg Hydrocodone Bitart/Acetaminophen ([place] 5/325mg) 1 tab PO Q4HP PRN PRN Reason: PAIN LEVEL 3-6 Last Admin: 12/24/17 08:41 Dose: 1 tab Albuterol Sulfate (Ventolin) 2.5 mg NEB Q2HP PRN PRN Reason: Shortness Of Breath Aspirin (Aspirin) 81 mg PO DAILY [facility] Last Admin: 12/24/17 08:41 Dose: 81 mg Bisacodyl (Dulcolax) 10 mg [place] Q2-3DAYS PRN PRN Reason: Constipation Carbidopa/Levodopa (Sinemet 25/100) 1.5 tab PO BID@0600,1200 [facility] Last Admin: 12/24/17 05:58 Dose: 1.5 tab Celecoxib (Celebrex) 200 mg PO DAILY [facility] Last Admin: 12/24/17 08:41 Dose: 200 mg Docusate Sodium (Colace) 100 mg PO BID [facility] Last Admin: 12/24/17 08:41 Dose: 100 mg Enoxaparin Sodium (Lovenox) 30 mg SQ DAILY [facility] Last Admin: 12/24/17 08:40 Dose: 30 mg Ketorolac Tromethamine (Ketorolac Tromethamine) 0 ml OP Q8HP PRN PRN Reason: Pain Magnesium Hydroxide (Milk Of Magnesia) 30 ml PO DAILYP PRN PRN Reason: Constipation Ondansetron HCl (Zofran) 4 mg IV Q6HP PRN PRN Reason: Nausea And Vomiting Pramipexole Dihydrochloride (Mirapex) 0.25 mg PO BID@0600,1200 [facility] Last Admin: 12/24/17 05:59 Dose: 0.25 mg Quetiapine Fumarate (Seroquel) 12.5 mg PO HS [facility] Last Admin: 12/23/17 20:53 Dose: Not Given Sodium Biphosphate/Sodium Phosphate (Fleets Adult) 1 dose [place] Q3-4DAYS PRN PRN Reason: Constipation Sodium Chloride (Saline Flush) 10 ml IV Q8 [facility] Last Admin: 12/24/17 05:59 Dose: 10 ml Medical - PN: A/P - Time Spent With Patient Total time spent is greater than 50% in coordination of care (as documented) at patient's floor/unit and/or counseling patient: 25 - 35 minutes (1) Acute respiratory failure with hypoxemia Status: Resolved Current Visit: Yes (2) Contusion of left hip Status: Acute Current Visit: No (3) Pain Status: Acute Current Visit: Yes - Narrative A/P Narrative: 87-year-old female who presents with ongoing pain after ground-level fall the day prior to admission. Found to have low-grade temperature and hypoxic respiratory failure. Acute hypoxic respiratory failure. Resolved. Suspect secondary to hypoventilation and atelectasis. Chest CT w/o PNA or PE. Plan: Incentive spirometry. Ground-level fall with left lower extremity pain. No fracture noted. Symptoms wax/wane, suspect due to her becoming more active. Still needing significantly more assistance than at baseline to attend to ADLs. Suspected soft tissue injury. Awaiting SNF. Plan: Continue Celebrex, cautious opioids, continue with PT and OT. Parkinson's disease with decreased mobility. Apparently led to an original fall. Plan: Continue Sinemet. Therapy evaluation and treatment as above. Hypertension. Plan: Continue home regimen. Prophylaxis: Heparin Medical - PN: Qual - VTE Deep Vein Thrombosis/Pulmonary Embolism Present on Admission: No
[2017-12-24] MEDS: QUEtiapine 25 MG TABLET PO SCH (20:05)
[2017-12-25] MEDS: PRAMIPEXOLE 0.25 MG TABLET PO SCH ×2 (05:56→11:37)
[2017-12-25] MEDS: 0.9 % SODIUM CHLORIDE 10 ML SYRINGE IV SCH (05:56)
[2017-12-25] MEDS: CARBIDOPA/LEVODOPA 25/100 TABLET PO SCH ×2 (05:56→11:37)
[2017-12-25] MEDS: ASPIRIN 81 MG TAB.CHEW PO SCH (09:23)
[2017-12-25] MEDS: ENOXAPARIN 30 MG/0.3 ML SYRINGE SQ SCH (09:23)
[2017-12-25] MEDS: DOCUSATE SODIUM 100 MG CAPSULE PO SCH (09:23)
[2017-12-25] MEDS: CELECOXIB 200 MG CAPSULE PO SCH (09:23)
[2017-12-25 09:25] LABS: Basophils # (Auto) 0 K/mcL (0.0-0.3); Basophils % (Auto) 0.4 % (0.0-2.0); Eosinophils # (Auto) 0.2 K/mcL (0.0-0.7); Eosinophils % (Auto) 3.3 % (0.0-7.0); Granulocytes % (Auto) 71.5 % (38.0-78.0); Lymphocytes # (Auto) 1.3 K/mcL (1.5-4.8); Lymphocytes % (Auto) 18.7 % (15.5-49.0); Mean Cell Volume 93.7 fL (80.0-100.0); Mean Corpuscular HGB Conc 33.5 g/dL (31.0-36.0); Mean Corpuscular Hemoglobin 31.4 pg (26.0-34.0); Monocytes # (Auto) 0.4 K/mcL (0.1-0.9); Monocytes % (Auto) 6.1 % (1.0-12.0); Platelet Count 273 K/mcL (140-440); RBC 4.86 M/mcL (4.00-5.20); Red Cell Distribution Width 13.2 % (11.5-14.5)
[2017-12-25 09:50] LABS: ALT/SGPT < 5 U/l (0-40); Albumin 4.2 gm/dL (3.2-5.2); Albumin/Globulin Ratio 1.4 (1.0-2.3); Alkaline Phosphatase 65 U/L (39-117); Bilirubin,Direct < 0.2 mg/dL (0.0-0.3); Blood Urea Nitrogen 18 mg/dl (8-23); Gamma Glutamyl Transpeptidase 28 U/L (5-36); Uric Acid 3.3 mg/dL (2.5-8.0)
--- NOTE | 2017-12-25 10:09 | Discharge Summary ---
Medical - DS: Prov Patient information: Note initiated : 12/25/17 at 10:02 am Service Date, if different from initiated Date: [] Patient: Christina Camargo 87 y/o F admitted on 12/21/17 for Left Knee and Hip Pain/Hypoxic Respiratory Failure. Chief Complaint: [] Date of admission: 12/21/17 17:54 Discharge date: 12/25/17 Primary care physician: Elliott Joseph Admitting clinician: Sarah Lane Consults: 12/21/17 16:59 Consult to Physician [CONS] Stat Comment: Consulting Provider: Sarah Lane Reason For Exam: Physician to Consult Discharging clinician: Madison Elkins Medical - DS: Meds - Discharge Medications Prescriptions: Celecoxib [Celebrex] 200 mg PO DAILY #30 capsule HYDROcodone/APAP 5/325MG [Camden 5/325Mg] 1 tab PO Q6HP PRN #30 tab PRN Reason: Pain Level 3-6 Active and Home Medications: Home Medications carbidopa 25 mg-levodopa 100 mg tablet See Label Instructions PO .COMPLEX [History Confirmed 12/21/17 Last Taken 12/21/17 12:00] pramipexole 0.5 mg tablet 0.25 mg PO BID tab 09/29/16 [History Confirmed Last Taken 12/21/17 12:00] cyanocobalamin (vit B-12) 1,000 mcg tablet 1,000 mcg PO .QOD #1 tab 12/28/16 [ Rx Confirmed 12/21/17 Last Taken 12/21/17 09:00] aspirin 81 mg tablet,delayed release 81 mg PO QDAY 08/04/17 [History Confirmed 12/21/17 Last Taken 12/21/17 09:00] Udo's 3.6.9 Blend 1,500 mg PO QDAY 08/30/17 [History Confirmed 12/21/17 Last Taken Unknown] acetaminophen 500 mg tablet 500 mg PO QDAY PRN tab 08/30/17 [History Confirmed 12/21/17 Last Taken Unknown] ketorolac 0.5 % eye drops 1 drp OPHTHALMIC Q8H 08/30/17 [History Confirmed 12/21 Last Taken Unknown] quetiapine 25 mg tablet See Label Instructions .ROUTE .COMPLEX 10/23/17 [ History Confirmed 12/21/17 Last Taken Unknown] hydrocodone 5 mg-acetaminophen 325 mg tablet 1 tab PO QDAY PRN #30 tab 11/08/17 [Rx Confirmed 12/21/17 Last Taken 12/21/17] Medical - DS: Hosp Hospital course: The patient is a 87-year-old female with history of Parkinson's disease, hypertension, hyperlipidemia who presented to the ED with persistent pain after ground-level fall. The patient had a fall on Sunday evening. She is generally unsteady on her feet secondary to Parkinson's disease and in the process of going to bed, became unsteady on her feet and had a ground-level fall landing on the left side of her body as well as striking her head. She was fairly miserable at night was seen in the emergency department yesterday morning. Imaging did not reveal any evidence of fracture. There was thought of admitting her, but apparently the family wanted to try getting along at home. She spent a fairly miserable day yesterday after returning home, she was painful and cannot bear weight on the left leg. She had Camden on hand, and it did not seem to provide much relief. Because of persistent pain and a repeat present to the emergency department, and was admitted to the hospital for further management. 2/3 Still with left lateral hip and leg pain, though it seems to be slowly improving. CT angios shows significant atelectasis which had progressed from chest film previous day. No evidence pulmonary embolism. No evidence of infiltrate or inflammatory changes. 2/4 More mobile today, was able to get up and ambulate in the room to some extent. Still needing assistance to standing and with ambulation. Celebrex seems to be helping her hip pain. Not yet independent enough to return home. No cough or sputum production. Using incentive spirometer. 2/5 A bit more painful today. Using Camden as needed. Patient and her family have agreed on skilled facility. Waiting approval at this point. Acute hypoxic respiratory failure. Resolved. Suspect secondary to hypoventilation and atelectasis. Chest CT w/o PNA or PE. Much improved with incentive spirometery, advise to continue same at the rehab center. Ground-level fall with left lower extremity pain. No fracture noted. Symptoms wax/wane, suspect due to her becoming more active. Still needing significantly more assistance than at baseline to attend to ADLs. Suspected soft tissue injury. Continue tylenol and Celebrex for pain management, cautious use opioids , continue with PT and OT. Parkinson's disease with decreased mobility. Apparently led to an original fall. Plan: Continue Sinemet. No changes to home regime done except addition of celebrex for pain, and low dose hydrocodone for as needed pain. Discharge diagnosis: fall, left lower extremity pain. - Time Spent with Patient Total time spent providing and/or coordinating discharge services: Greater than 30 minutes Medical - DS: Exam - Constitutional Vitals: Vital Signs Temp Pulse Resp BP Pulse Ox 12/25/17 04:00 97.6 F 69 18 162/87 94 12/24/17 23:50 99.3 F H 70 18 184/77 96 12/24/17 20:00 97.8 F 78 18 170/85 94 12/24/17 15:44 98.5 F 16 128/77 97 12/24/17 10:51 97.9 F 16 168/93 97 Intake and Output 12/24/17 12/25/17 12/25/17 21:59 05:59 13:59 Intake Total 400 / 400 300 / 300 Output Total 300 / 300 400 / 400 425 / 425 Balance 100 / 100 -100 / -100 -425 / -425 Intake: Oral 400 / 400 300 / 300 Output: Void Amount 300 / 300 400 / 400 425 / 425 Other: # Voids 1 Weight 122 lb 8 oz Additional comments: Constitutional; Afebrile, cooperative, alert, not in distress. Eyes- No icterus, , No periorbital swelling Ears- Ext ear normal, Neck- Midline trachea, supple Respiratory system: Air Entry equal on both sides, No crackles or wheezing, no rhonchi. CVS- Rate rhythm regular, S1,S2 heard, no gallop, no rub. Abdomen- Soft nontender abdomen, no organomegaly, no tenderness, no guarding or rigidity, WOOLEN TESTER- AOOx2, moving all extremities, no gross focal deficit noted. Medical - DS: Data Labs on day of discharge: Labs from last 24 hours 12/25/17 12/25/17 08:47 08:47 WBC 7.0 RBC 4.86 Hgb 15.3 H Hct 45.6 MCV 93.7 MCH 31.4 MCHC 33.5 RDW 13.2 Plt Count 273 MPV 7.7 Gran % 71.5 Lymph % (Auto) 18.7 Curry % (Auto) 6.1 Eos % (Auto) 3.3 Baso % (Auto) 0.4 Gran # 5.0 Lymph # (Auto) 1.3 L Curry # (Auto) 0.4 Eos # (Auto) 0.2 Baso # (Auto) 0 Sodium 137 Potassium 3.5 Chloride 97 Carbon Dioxide 26 Anion Gap 14.0 BUN 18 Creatinine 0.7 GFR Calculation 78 Glucose 138 H Uric Acid 3.3 Calcium 9.0 Phosphorus 3.6 Magnesium 2.1 Total Bilirubin 0.9 Direct Bilirubin < 0.2 GGT 28 AST 25 ALT < 5 Alkaline Phosphatase 65 Lactate Dehydrogenase 267 H Total Protein 7.2 Albumin 4.2 Globulin 3.0 Albumin/Globulin Ratio 1.4 Triglycerides 119 Preliminary micro results at discharge 12/21/17 15:16 Blood Culture - Preliminary Blood 12/21/17 14:50 Blood Culture - Preliminary Blood Medical - DS: A/P - Patient/Caregiver Discharge Instructions Activity: as per physical therapy, increase activity as tolerated Diet: Regular Diet Additional Instructions: Follow up with PCP in 1 week. Go to the ER if worsening pain, confusion or any other concerning symptom Use tylenol for pain management as much as possible, use hydrocodone only if very severe pain (pain score > 8, not responding to tylenol) Continue to work with OT/PT/ST - Follow up Plan Follow up with: Max Joseph MD [Primary Care Provider] - Disposition: Xfer SNF Prognosis: Fair Rehab Potential: Fair I certify that the patient requires SNF services: Yes Overall status at discharge: patient is progressing back to baseline Medical - DS: Qual - VTE Deep Vein Thrombosis/Pulmonary Embolism Present on Admission: No
[2017-12-25] MEDS ORDERED: ACETAMINOPHEN 500 MG TABLET PO PRN (10:13)
== END 2017-12-25 11:45 | DRG 189 ==
LOC: ED 13:15 → MEDSUR 17:54
PROVIDERS: ADMIT Internal Medicine; ATTEND Internal Medicine